=== PATIENT | female | born 1940 | race Caucasian/White ===

== ENCOUNTER 2018-07-06 17:39 | Inpatient (IN) | payer OTHER, BC ==
[~2018-07-06] VITALS: Ht 195.6 cm; Wt 91.2 kg
[2018-07-06 17:39] VITALS: BP 154/74
[2018-07-06] MEDS ORDERED: ZOLOFT25 MG PO (17:48)
[2018-07-06 18:06] LABS: HEMOGLOBIN 13.2 gm/dL (12.0-15.0); MCH 31.1 pg (26.0-34.0); MCHC 33.8 g/dL (28.0-37.0); RBC 4.24 mil/uL (4.20-5.00); RDW 12.7 % (10.5-14.5); WBC 22.3 thou/uL (4.0-11.0)
[2018-07-06 18:13] LABS: CALCIUM 8.6 mg/dL (8.5-10.1); CREATININE 0.8 mg/dL (0.6-1.0); POTASSIUM 3.9 mmol/L (3.5-5.1)
[2018-07-06 18:19] LABS: ALBUMIN 3.3 g/dL (3.4-5.0); TOTAL BILIRUBIN 0.3 mg/dL (<0.1-1.0)
[2018-07-06 18:36] LABS: TROPONIN-I <0.06 ng/mL (<0.06)
[2018-07-06 18:44] LABS: PLATELET ESTIMATE INCREASED
[2018-07-06 18:46] LABS: ABSOLUTE NEUTROPHILS 20.3 thou/uL (1.4-8.2)
[2018-07-06 19:06] LABS: URINE BILIRUBIN NEGATIVE (Negative); URINE BLOOD 1+ (Negative); URINE CLARITY CLEAR; URINE COLOR YELLOW; URINE GLUCOSE-RANDOM* NEGATIVE (Negative); URINE KETONES 3+ (Negative); URINE LEUKOCYTES-REFLEX NEGATIVE (Negative); URINE NITRITE-REFLEX NEGATIVE (Negative); URINE PROTEIN (DIPSTICK) TRACE (Negative); URINE SPECIFIC GRAVITY 1.025 (1.005-1.035); URINE UROBILINOGEN 0.2 E.U./dl (0.2-1.0)
[2018-07-06 19:14] LABS: URINE REDUCING SUBSTANCE NEGATIVE
[2018-07-06 19:20] LABS: BACTERIA-REFLEX 1-9 Few /HPF (None Seen); CASTS None Seen /LPF (None Seen); CRYSTALS None Seen /LPF (None Seen); SQUAMOUS 0-3 Few /LPF (0-3); URINE RBC 3-10 Few /HPF (0-2); URINE WBC-REFLEX None Seen /HPF (0-5)
[2018-07-06 21:31] LABS: CSF GLUCOSE 84 mg/dL (40-70); CSF PROTEIN 75 mg/dL (15-45)
[2018-07-06 22:08] LABS: CSF RBC 113 /mm3; CSF WBC 1 /mm3 (0-10); VOLUME 4 ml
[2018-07-06 22:09] LABS: CSF CLARITY CLEAR; CSF COLOR COLORLESS
[2018-07-07 00:59] VITALS: BP 129/60
[2018-07-07 04:24] VITALS: BP 103/45
--- NOTE | 2018-07-07 04:32 | NUR ---
ADMITTED FROM ER UNDER 'S CARE. ADMITTING DX LEUKOCYTOSIS. VSS UPON ADMISSION. AFEBRILE. AXOX4. PALE, DIAPHORETIC. SEEN BY PATRICK THAPA LACQUER MIXER FOR AT BEDSIDE. IVF INITIATED AND LOADING DOSE OF VANCO ADMIN. NAUSEA AND CHRONIC BACK PAIN TX PER MD ORDER. DENIES CHEST PAIN, VOMITING, SOB UPON ARRIVAL. LATER NOTED WITH DEC O2 SAT AT RESTING AROUND 91%. AFTER DEEP BREATHING, WENT UP TO 97%. APPLIED 2L O2 NC FOR COMFORT AND EASE OF BREATHING. SR ON TELE. NO S/S ACUTE DISTRESS NOTED OR REPORTED AT THIS TIME. WILL CONT TO MONITOR ANY CHANGES IN CONDITION.
[2018-07-07 05:36] LABS: HEMATOCRIT 32.2 % (37.0-47.0); MCH 31.1 pg (26.0-34.0); MCHC 33.6 g/dL (28.0-37.0); MCV 92.7 fL (80.0-100.0); RBC 3.48 mil/uL (4.20-5.00); RDW 12.8 % (10.5-14.5); WBC 16.9 thou/uL (4.0-11.0)
[2018-07-07 05:41] LABS: HEMOGLOBIN 10.8 gm/dL (12.0-15.0)
[2018-07-07 05:48] LABS: CALCIUM 7.7 mg/dL (8.5-10.1); CREATININE 0.7 mg/dL (0.6-1.0)
--- NOTE | 2018-07-07 09:13 | NUR ---
PT IS A70X4, CLOSE SBA D/T WEAKNESS, STATES HER IV CAME OUT IN THE MIDDLE OF THE NIGHT AND HER BED WAS SLIGHTLY DAMP. CHANGED LINENS, WILL RE-START ANOTHER IV SOON ABLE. ON TELE. SPOUSE AT BEDSIDE, ENCOURAGED PT TO USE CALL LIGHT FOR ANY NEEDS. IN CHAIR AT THIS TIME, GAVE WARM BLANKET AND CHANGED GOWN
--- NOTE | 2018-07-07 10:19 | NUR ---
PT ADMITTED RELATED TO LEUKOCYTOSIS. C, REVIEWED CHART AND SPOKE WITH CARE TEAM. CM MET WITH PT AND SPOUSE AT BEDSIDE THIS DAY. PT IS A&O X4. CM ROLE INTRODUCED. PT INDICATED THEY LIVE IN A DAWN WITH 3 STEPS TO ENTER AND A FULL FLIGHT TO BASEMENT THST THEY DON'T USE. 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 PT INDICATED NO HH OR DME HX. PT INDICATED SHE PLANS TO RETURN HOME ONCE MEDICALLY STABLE. CM TO FOLLOW INDICATED WITH DC PLANNING.
[2018-07-07 12:36] VITALS: BP 114/58
--- NOTE | 2018-07-07 16:45 | EKG ---
[place] [address] [facility] [place] [address] ELECTROCARDIOGRAM REPORT Name: JULIETH CAMPOS Moris Room #: 456-P ADM IN M.R.#: [id number] ������������������ Admission: 07/06/18 ������������������ Attend Phys: Shoaib Quiñonez DO Discharge: ������������������ Date of : 44 Report #: [id number] ����������������������������������������������������������������� [id number] THIS REPORT FOR: //name// [facility] ED Test Date: 2018-07-06 Test Time: 18:04:01 Pat Name: JULIETH CAMPOS Department: Room: [facility] Gender: F Assistant Family Teacher: THELMA : 1940 Requested By: Allison Galvin Order Number: [id number] MD: Greg Katz Measurements Intervals [place] Rate: 99 P: 38 RI: 158 QRS: 51 QRSD: 107 T: 264 QT: 361 QTc: 464 Interpretive Statements Sinus rhythm Repol abnrm suggests ischemia Compared to ECG 11/10/2005 14:03:22 ST (T wave) deviation now present Electronically Signed On 07-07-2018 16:45:37 CDT by Greg Katz [email or web address] ��������������������������������������������� <ELECTRONICALLY SIGNED> ���������������������������������������� By: Greg Katz MD, [facility] ��������������������������������������������� 07/07/18 1645 1804 1804 Greg Katz MD, [facility] /EPI
[2018-07-07 19:24] VITALS: BP 99/56
[2018-07-07 20:11] VITALS: BP 106/52
[2018-07-08 03:07] VITALS: BP 115/62
[2018-07-08 06:04] LABS: ABSOLUTE NEUTROPHILS 13.7 thou/uL (1.4-8.2); BASOPHILS 0.2 % (0.0-2.0); EOSINOPHILS 0.1 % (0.0-3.0); HEMATOCRIT 31.8 % (37.0-47.0); HEMOGLOBIN 10.5 gm/dL (12.0-15.0); LYMPHOCYTES 6.4 % (24.0-44.0); MCH 30.7 pg (26.0-34.0); MCHC 33.1 g/dL (28.0-37.0); MCV 92.8 fL (80.0-100.0); MONOCYTES 10.5 % (1.0-8.0); PLATELET COUNT 633 thou/uL (150-400); POLYS 82.8 % (36.0-66.0); RBC 3.43 mil/uL (4.20-5.00); RDW 13.2 % (10.5-14.5); WBC 16.5 thou/uL (4.0-11.0)
[2018-07-08 06:19] LABS: ALBUMIN 2.5 g/dL (3.4-5.0); CREATININE 0.7 mg/dL (0.6-1.0); MAGNESIUM 1.7 mg/dL (1.8-2.4); POTASSIUM 3.6 mmol/L (3.5-5.1); TOTAL BILIRUBIN 0.2 mg/dL (<0.1-1.0)
--- NOTE | 2018-07-08 06:59 | NUR ---
Pt. rested quietly at intervals during the night when checked on during frequent rounds. She did c/o some shortness of breath and O2 saturation at 96% on room air. Pt. requested a couple of liters of 02 and O2 applied at 2 liters for comfort. Lung sounds clear upon auscultation. No further complaints offered after 02 applied. Bed alarm is on.
[2018-07-08 07:59] VITALS: BP 126/69
[2018-07-08] MEDS ORDERED: CRESTOR10 MG PO (09:46)
[2018-07-08 15:06] VITALS: BP 117/72
--- NOTE | 2018-07-08 19:42 | NUR ---
Assumed pt care this am, on 2L of O2 via NC for comfort care. Pt was in her bed for the duration of the shift. Mentioned that she had a dark green bowel movement and she had several the liquid stool previously as well. Pt comlpained of her throat being sore as well. Seen by Dr. Gibbs, stool sample requested and pt placed on isolation precations for c-diff. strep throat test done and came back positive. POC followed, pt stable during the shift, still awaiting stool sample.
[2018-07-08 20:01] VITALS: BP 128/68
[2018-07-09 01:03] LABS: URINE BILIRUBIN NEGATIVE (Negative); URINE BLOOD 1+ (Negative); URINE CLARITY CLEAR; URINE COLOR YELLOW; URINE GLUCOSE-RANDOM* NEGATIVE (Negative); URINE KETONES 1+ (Negative); URINE LEUKOCYTES-REFLEX TRACE (Negative); URINE NITRITE-REFLEX NEGATIVE (Negative); URINE PROTEIN (DIPSTICK) NEGATIVE (Negative); URINE SPECIFIC GRAVITY <= 1.005 (1.005-1.035); URINE UROBILINOGEN 0.2 E.U./dl (0.2-1.0)
[2018-07-09 01:24] LABS: BACTERIA-REFLEX None Seen /HPF (None Seen); CASTS None Seen /LPF (None Seen); CRYSTALS None Seen /LPF (None Seen); SQUAMOUS 0-3 Few /LPF (0-3); URINE RBC 0-2 Rare /HPF (0-2); URINE WBC-REFLEX 0-5 Rare /HPF (0-5)
[2018-07-09 04:20] VITALS: BP 148/70
--- NOTE | 2018-07-09 04:21 | NUR ---
ASSUMED CARE AROUND 1900. AXOX4. PUT ON AZITHROMYCIN FOR STREP THROAT. C/O BACK RASH AND ITCHYING. CORTISONE CREAM ORDERED PER BOG CUTTER ORDER. URINE AND STOOL COLLECTED AND SENT DOWN FOR LABS. PT REMAINED AFEBRILE. 2L O2 APPLIED FOR NOC FOR COMFORT. NO S/S ACUTE DISTRESS NOTED OR REPORTED AT THIS TIME. WILL CONT TO MONITOR ANY CHANGES IN CONDITION.
[2018-07-09 05:12] LABS: HEMATOCRIT 32.6 % (37.0-47.0); HEMOGLOBIN 10.7 gm/dL (12.0-15.0); MCH 30.7 pg (26.0-34.0); MCHC 32.9 g/dL (28.0-37.0); MCV 93.3 fL (80.0-100.0); RBC 3.49 mil/uL (4.20-5.00); RDW 13.1 % (10.5-14.5); WBC 10.7 thou/uL (4.0-11.0)
[2018-07-09 08:14] VITALS: BP 124/60
[2018-07-09] MEDS ORDERED: CEFUROXIME500 MG PO (10:38)
[2018-07-09] MEDS ORDERED: CEPACOL SORE T1 EAC7 PO (10:39)
[2018-07-09 10:52] VITALS: BP 124/60
--- NOTE | 2018-07-09 12:22 | NUR ---
ASSUMED PATIENT CARE AT 0715. PATIENT SLEEPING AT THAT TIME. WOKE AND ATE SOME BREAKFAST. STATED DOESN'T HAVE MUCH OF AN APPETITE TODAY. WAS ABLE TO EAt APPROXIMATELY 1/2 OF BREAKFAST. STATED I JUST WANT TO GO HOME SO I CAN BE COMFORTABLE. STATED HAD ONE DIARRHEA THIS AM. CDIFF RESULTS NOT BACK YET. DENIED PAIN. UP INDEPENDENTLY AND TOLERATING WELL. VOIDING WITHOUT DIFFICULTY AND IN ADEQUATE AMOUNTS. INFORMATION ON HYPOGLYCEMIA GIVEN AND DISCUSSED WITH PATIENT. PRESCRIPTION GIVEN FOR CEFTIN AND CEPACOL LOSENGES. DISCHARGE INSTRUCTIONS GIVEN. PATIENT AND SPOUSE REQUESTING THIS HOSPITAL STAY RECORDS BE FAXED TO THEIR PRIMARY DR., DR. EDDY. CONSENT SIGNED FOR MEDICAL RECORD RELEASE AND FAXED. DISCHARGED HOME IN STABLE CONDITION.
[2018-07-10 18:06] LABS: ADENOVIRUS Negative (Negative); INFLUENZA A Negative (Negative); INFLUENZA B Negative (Negative); METAPNEUMOVIRUS Negative (Negative); PARAINFLUENZA 1 Negative (Negative); PARAINFLUENZA 2 Negative (Negative); PARAINFLUENZA 3 Negative (Negative); RHINOVIRUS Negative (Negative); RSV A Negative (Negative); RSV B Negative (Negative)
== END 2018-07-09 12:05 | disposition home or self-care (01) | DRG 152 ==
LOC: ER 17:39 → EROBS 22:03 → 4W 22:03
PROVIDERS: Emergency Medicine; Hospitalist; Nurse Practitioner Acute Care; Student in an Organized Health Care Education/Training Program; ADMIT Internal Medicine Geriatric Medicine
PROC: 009U3ZX Drainage of Spinal Canal, Percutaneous Approach, Diagnostic (ICD-10-PCS; principal; 2018-07-06)
DX: J02.0 Streptococcal pharyngitis (principal); E43 Unspecified severe protein-calorie malnutrition; G93.40 Encephalopathy, unspecified; D72.829 Elevated white blood cell count, unspecified; E78.00 Pure hypercholesterolemia, unspecified; G89.29 Other chronic pain; M54.9 Dorsalgia, unspecified; M62.84 Sarcopenia; E83.42 Hypomagnesemia; D64.9 Anemia, unspecified; E78.5 Hyperlipidemia, unspecified; Z79.899 Other long term (current) drug therapy; Z88.0 Allergy status to penicillin; Z90.49 Acquired absence of other specified parts of digestive tract; Z88.6 Allergy status to analgesic agent
CPT/HCPCS: 10045